=== PATIENT | female | born 1970 | race Caucasian/White ===

== ENCOUNTER 2017-09-05 22:21 | Emergency (ER) | payer OTHER ==
[~2017-09-05] VITALS: Ht 162.6 cm; Wt 60.0 kg
[~2017-09-05 22:21] MED LIST: ALPR-138 PO; BUPR150XL PO; NEUR100C PO; PAXI20TA26 PO; PRED20 PO; SOMA250T OR; ZOFR4TAB3 SL
[2017-09-05 22:24] VITALS: BP 117/74; PULSE 84; RESP 18; TEMP 97.8; O2SAT 98
[2017-09-05 22:37] VITALS: RESP 16; O2SAT 98
[2017-09-05] MEDS ORDERED: ASPIRIN 81 MG CHEW TAB PO ONE (22:45)
[2017-09-05] MEDS ORDERED: SODIUM CHLORIDE 0.9% FLUSH 10 ML FLUSH IVF PRN (22:45)
--- NOTE | 2017-09-05 23:12 | RADRPT ---
EXAM DATE/TIME: 09/05/2017 22:44 [facility] COMPARISON: No previous studies available for comparison. INDICATIONS : Intermittent chest pain.. MEDICAL HISTORY : Cardiogenic syndrome. SURGICAL HISTORY : None. ENCOUNTER: Initial ACUITY: 3 weeks PAIN SCORE: 7/10 LOCATION: Left chest from middle of sternum radiating to left side. FINDINGS: PA and lateral views of the chest demonstrate the lungs to be symmetrically aerated without evidence of mass, infiltrate or effusion. The cardiomediastinal contours are unremarkable. Osseous structure s are intact. CONCLUSION: No acute disease. Charli Calderon MD on September 05, 2017 at 23:09 Board Certified Radiologist. This report was verified electronically.
[2017-09-05 23:33] VITALS: BP 99/60; PULSE 60; RESP 14; O2SAT 98
--- NOTE | 2017-09-05 23:43 | PD ---
HPI . Chest pain Chief Complaint: Chest Pain Time Seen by Provider: 22:31 Travel History International Travel<30 days: No Contact w/Intl Traveler<30days: No Traveled to known affect area: No History of Present Illness HPI This patient comes in with the chief complaint of chest pain which has been occurring intermittently for the last 3 weeks. She states that the pain is sharp and is associated with shortness of breath. It had been lasting just a couple seconds but now is lasting about 5 minutes. He reports about 3 episodes of chest pain today. She has not noticed any modifying factors. She currently has no pain but states that, when the pain comes, it is very sharp and severe. This patient states that she takes several narcotics and benzodiazepines. She states that she saw her primary care provider today who attributed her symptoms to anxiety. The doctor changed her benzodiazepine from Xanax to clonazepam. PFSH Past Medical History Asthma: Yes Autoimmune Disease: No Blood Disorders: No Anxiety: Yes Depression: No Heart Rhythm Problems: Yes (PALPITAIONS) Cancer: No Cardiovascular Problems: Yes Chemotherapy: No Diminished Hearing: No Endocrine: No Genitourinary: No Headaches: Yes Musculoskeletal: Yes Neurologic: Yes Psychiatric: No Respiratory: Yes Radiation Therapy: No Sickle Cell Disease: No Tetanus Vaccination: < 5 Years Influenza Vaccination: Yes ?: Not : 4 Para: 2 Miscarriage: 0 : 2 Tubal Ligation: Yes Past Surgical History Body Medical Devices: CERVICAL FUSION Gynecologic Surgery: Yes (TUBAL ) Neurologic Surgery: Yes (C6 AND C6 CERVICAL FUSION ) Oral Surgery: Yes (T&A) Tonsillectomy: Yes Other Surgery: Yes Social History Alcohol Use: Yes Tobacco Use: Yes (10 CIGARETTES PER DAY) Substance Use: No Allergies-Medications (Allergen,Severity, Reaction): Coded Allergies: fexofenadine (Unverified Allergy, Severe, SOB, 09/05/17) Reported Meds & Prescriptions Reported Meds & Active Scripts Active Deltasone (Prednisone) 20 Mg Tab 20 Mg PO BID Zofran ODT (Ondansetron HCl) 4 Mg Tab 4 Mg SL Q6HPRN FOR NAUSEA/VOMITING Reported Xanax (Alprazolam) 0.25 Mg Tab 0.25 Mg PO Soma (Carisoprodol) 250 Mg Tab 250 Mg OR Neurontin (Gabapentin) 100 Mg Cap 0 PO UNKNOWN DOSE Wellbutrin 150 Mg Tab Xl (Bupropion Hcl) 150 Mg Janny 150 Mg PO DAILY Paxil (Paroxetine HCl) 20 Mg Tab 40 Mg PO DAILY Review of Systems Except as stated in HPI: all other systems reviewed are Neg General / Constitutional: No: Fever, Chills Cardiovascular: Positive: Chest Pain or Discomfort Respiratory: Positive: Shortness of Breath Musculoskeletal: Positive: Other Psychiatric: Positive: Anxiety Physical Exam Narrative GENERAL: Healthy-appearing woman in no acute distress. SKIN: warm/dry. HEAD: Normocephalic. Atraumatic. EYES: Pupils equal and round. No scleral icterus. No injection or drainage. ENT: No nasal bleeding or discharge. Mucous membranes pink and moist. NECK: Trachea midline. Full range of motion without pain.. CARDIOVASCULAR: Regular rate and rhythm. Heart sounds are normal. RESPIRATORY: No accessory muscle use. Clear to auscultation. Breath sounds equal bilaterally. MUSCULOSKELETAL: No obvious deformities. NEUROLOGICAL: Awake and alert. No obvious cranial nerve deficits. Motor grossly within normal limits. Normal speech. PSYCHIATRIC: Appropriate mood and affect; insight and judgment normal. Data Data Last Documented VS Vital Signs Date Time Temp Pulse Resp B/P (MAP) Pulse Ox O2 Delivery O2 Flow Rate FiO2 09/06/17 02:12 68 16 98/57 (71) 62 16 92/55 (67) 98 16 101/59 (73) 09/05/17 23:33 98 Room Air 09/05/17 22:24 97.8 Orders Orders Electrocardiogram (09/05/17 22:33) Basic Metabolic Panel (Bmp) (09/05/17 22:33) Complete Blood Count With Diff (09/05/17 22:33) Magnesium (Mg) (09/05/17 22:33) Troponin I (09/05/17 22:33) Ecg Monitoring (09/05/17 22:33) Iv Access Insert/Monitor (09/05/17 22:33) Oximetry (09/05/17 22:33) Aspirin Chew (Aspirin Chew) (09/05/17 22:45) Sodium Chloride 0.9% Flush (Ns Flush) (09/05/17 22:45) Chest, Pa & Lat (09/05/17 22:33) D-Dimer (09/05/17 23:43) Ct Pulmonary Angiogram (09/06/17 00:28) Iohexol 350 Inj (Omnipaque 350 Inj) (09/06/17 00:51) Sodium Chlor 0.9% 1000 Ml Inj (Ns 1000 M (09/06/17 01:00) Labs Laboratory Tests Test 09/05/17 23:30 09/05/17 23:45 White Blood Count 8.2 TH/MM3 Red Blood Count 3.81 MIL/MM3 Hemoglobin 12.2 GM/DL Hematocrit 35.7 % Mean Corpuscular Volume 93.7 FL Mean Corpuscular Hemoglobin 32.0 PG Mean Corpuscular Hemoglobin Concent 34.1 % Red Cell Distribution Width 14.1 % Platelet Count 251 TH/MM3 Mean Platelet Volume 7.4 FL Neutrophils (%) (Auto) 51.3 % Lymphocytes (%) (Auto) 39.2 % Monocytes (%) (Auto) 6.8 % Eosinophils (%) (Auto) 1.9 % Basophils (%) (Auto) 0.8 % Neutrophils # (Auto) 4.2 TH/MM3 Lymphocytes # (Auto) 3.2 TH/MM3 Monocytes # (Auto) 0.6 TH/MM3 Eosinophils # (Auto) 0.2 TH/MM3 Basophils # (Auto) 0.1 TH/MM3 CBC Comment DIFF FINAL Differential Comment Blood Urea Nitrogen 15 MG/DL Creatinine 0.74 MG/DL Random Glucose 79 MG/DL Calcium Level 8.7 MG/DL Magnesium Level 2.1 MG/DL Sodium Level 142 MEQ/L Potassium Level 3.6 MEQ/L Chloride Level 104 MEQ/L Carbon Dioxide Level 33.1 MEQ/L Anion Gap 5 MEQ/L Estimat Glomerular Filtration Rate 84 ML/MIN Troponin I LESS THAN 0.02 NG/ML D-Dimer Quantitative (PE/DVT) 0.55 MG/L FEU [facility] Medical Decision Making Medical Screen Exam Complete: Yes Emergency Medical Condition: Yes Interpretation(s) EKG shows a normal sinus rhythm with no acute ischemic change. Differential Diagnosis Differential diagnosis of chest pain includes but is not limited to musculoskeletal pain, pulmonary embolism, acute coronary syndrome, pneumonia, pleurisy Narrative Course Patient presents complaining with intermittent chest pain for the last 3 weeks. It has been worse today. The patient looks well clinically. CBC & BMP Diagram 09/05/17 23:30 Calcium Level 8.7, Magnesium Level 2.1 trop < 0.02 D-dimer 0.55 CT for PE was subsequently ordered. Last Impressions CT Angiography 09/06/17 0028 Signed Impressions: Service Date/Time: Wednesday, September 06, 2017 00:47 - CONCLUSION: Negative exam with no evidence of pulmonary embolism. Charli Calderon MD Chest X-Ray 09/05/17 2233 Signed Impressions: Service Date/Time: Tuesday, September 05, 2017 22:44 - CONCLUSION: No acute disease. Charli Calderon MD On return from CT, the patient went to sleep. She developed low blood pressure. She was given a liter bolus of fluid. She remained low. Orthostatic vital signs were checked but were negative. I suspect that she just runs a low blood pressure. She will be discharged home. The patient was offered admission to the chest pain center but declines. I feel that this is a reasonable decision as her chest pain really does not sound like cardiac chest pain. Diagnosis Primary Impression: Chest pain Qualified Codes: R07.9 - Chest pain, unspecified Additional Impression: Hypotension Qualified Codes: I95.9 - Hypotension, unspecified Disposition: DISCHARGE HOME Condition: Stable Gilda Beyer MD Sep 05, 2017 23:43
[2017-09-06 00:14] LABS: AUTOMATED NEUTROPHIL # 4.2 TH/MM3 (1.8-7.7); BASOPHIL # 0.1 TH/MM3 (0-0.2); BASOPHIL % 0.8 % (0.0-2.0); EOSINOPHIL # 0.2 TH/MM3 (0-0.4); EOSINOPHIL % 1.9 % (0.0-4.0); HEMATOCRIT 35.7 % (35.0-46.0); HEMOGLOBIN 12.2 GM/DL (11.6-15.3); LYMPH % 39.2 % (9.0-44.0); LYMPHOCYTE # 3.2 TH/MM3 (1.0-4.8); MEAN CELL VOLUME 93.7 FL (80.0-100.0); MEAN CORPUSCULAR HGB CONC 34.1 % (32.0-36.0); MEAN PLATELET VOLUME 7.4 FL (7.0-11.0); MONO % 6.8 % (0.0-8.0); MONOCYTE # 0.6 TH/MM3 (0-0.9); NEUT % 51.3 % (16.0-70.0); PLATELET COUNT 251 TH/MM3 (150-450); RED BLOOD COUNT 3.81 MIL/MM3 (4.00-5.30); RED CELL DISTRIBUTION WIDTH 14.1 % (11.6-17.2); WHITE BLOOD COUNT 8.2 TH/MM3 (4.0-11.0)
[2017-09-06 00:26] LABS: BICARBONATE 33.1 MEQ/L (21.0-32.0); BLOOD UREA NITROGEN 15 MG/DL (7-18); CALCIUM 8.7 MG/DL (8.5-10.1); CHLORIDE 104 MEQ/L (98-107); CREATININE 0.74 MG/DL (0.50-1.00); GLOMERULAR FILTRATION RATE 84 ML/MIN (>89); GLUCOSE,RANDOM 79 MG/DL (74-106); MAGNESIUM 2.1 MG/DL (1.5-2.5); SODIUM (NA) 142 MEQ/L (136-145)
[2017-09-06 00:30] LABS: TROPONIN I LESS THAN 0.02 NG/ML (0.02-0.05)
[2017-09-06] MEDS ORDERED: IOHEXOL 350 MG/ML 10 ML VIAL (for RAD DIAG) IVCONTRAST ONE (00:51)
[2017-09-06] MEDS ORDERED: SODIUM CHLOR 0.9% 1000 ML INJ 1,000 ML IV ONE (01:00)
--- NOTE | 2017-09-06 01:07 | RADRPT ---
EXAM DATE/TIME: 09/06/2017 00:47 [facility] COMPARISON: CHEST PA & LAT, September 05, 2017, 22:44. INDICATIONS : Chest pain and shortness of breath; rule out pulmonary embolus. IV CONTRAST: 75 cc Omnipaque 350 (iohexol) IV RADIATION DOSE: 6.64 CTDIvol (mGy) MEDICAL HISTORY : Cardiovascular disease. Asthma SURGICAL HISTORY : Tubal ligation. Tonsillectomy.C5-6 Fusion ENCOUNTER: Initial ACUITY: 1 day PAIN SCALE: 5/10 LOCATION: chest TECHNIQUE: Volumetric scanning of the chest was performed using a pulmonary embolism protocol MIP images were re constructed. Using automated exposure control and adjustment of the mA and/or kV according to patien t size, radiation dose was kept as low as reasonably achievable to obtain optimal diagnostic quality images. DICOM format image data is available electronically for review and comparison. Follow-up recommendations for detected pulmonary nodules are based at a minimum on nodule size and pa tient risk factors according to Fleischner Society Guidelines. FINDINGS: PULMONARY ARTERIES: No filling defects are seen in the pulmonary arteries through the segmental level. LUNGS: There is no consolidation or pneumothorax . No concerning pulmonary nodule is visualized. PLEURAE: There is no pleural thickening or pleural effusion. MEDIASTINUM: There is good visualization of the great vessels of the middle mediastinum. No evidence of mediastin al or hilar adenopathy/mass. MUSCULOSKELETAL: Within normal limits for patient age. MISCELLANEOUS: The visualized upper abdominal organs demonstrate no acute abnormality. CONCLUSION: Negative exam with no evidence of pulmonary embolism. Charli Calderon MD on September 06, 2017 at 1:02 Board Certified Radiologist. This report was verified electronically.
[2017-09-06 02:12] VITALS: BP_SYST 101; BP_SYST 92; BP_SYST 98; BP_DIAS 55; BP_DIAS 57; BP_DIAS 59; RESP 16
--- NOTE | 2017-09-06 20:03 | EKG ---
Date Performed: 09/05/2017 Time Performed: 23:21:46 PTAGE: 47 years EKG: SINUS BRADYCARDIA BORDERLINE ECG Since the PREVIOUS TRACING , no significant change noted PREVIOUS TRACIN04/07/2009 07.42 DOCTOR: Sheryl Jimenez Interpretating Date/Time 09/06/2017 20:01:50
== END 2017-09-06 03:36 | disposition home or self-care (01) ==
LOC: NEPC 22:21
DX: R07.9 Chest pain, unspecified (principal); I95.9 Hypotension, unspecified; R94.31 Abnormal electrocardiogram [ECG] [EKG]; J45.909 Unspecified asthma, uncomplicated; F41.9 Anxiety disorder, unspecified; F17.210 Nicotine dependence, cigarettes, uncomplicated
CPT/HCPCS: 71046; 71275; 80048; 83735; 84484; 85025; 85379; 93005; 99285; J7030; Q9967